=== PATIENT | male | born 1970 | race Caucasian/White ===

== ENCOUNTER 2020-09-14 13:39 | Outpatient (REF) | payer OTHER, SELFPAY ==
--- NOTE | 2020-09-14 | MR_ITS ---
EXAMINATION: MR CERVICAL SPINE WITHOUT AND WITH CONTRAST CLINICAL INFORMATION: Cervical myelopathy status post surgery with foraminotomies 2014. COMPARISON: Cervical spine MRI July 20, 2015. TECHNIQUE: MRI of the cervical spine was performed with routine sequences without and with intravenous contrast. A total of 7.5 ml of Gadavist was intravenously administered. FINDINGS: The cervical vertebral bodies maintain normal height. There is mild grade 1 retrolisthesis of C6 on C7. Moderate to severe disc height loss is seen at C5-C6 and C6-C7 with the remaining disc heights fairly well preserved. No bone marrow edema is seen on the motion degraded STIR sequence. The cord signal appears normal. No abnormal intrathecal enhancement is seen. The imaged portions of the intracranial contents appear normal. The extraspinal soft tissues appear normal. SPINAL LEVELS: C2-C3: No posterior disc abnormality or spinal canal stenosis. Bilateral uncovertebral hypertrophy and facet arthropathy results in mild to moderate left neural foraminal stenosis. C3-C4: Mild disc osteophyte complex without spinal canal stenosis. Left more than right uncovertebral hypertrophy and mild facet arthropathy results in moderate left and mild right neural foraminal stenosis. C4-C5: Disc osteophyte complex with uncovertebral hypertrophy results in moderate bilateral neural foraminal stenosis. No spinal canal stenosis. C5-C6: No posterior disc abnormality or spinal canal stenosis. Bilateral uncovertebral hypertrophy results in moderate left and mild right neural foraminal stenosis. C6-C7: Disc osteophyte complex without spinal canal stenosis. Bilateral uncovertebral hypertrophy results in severe bilateral neural foraminal stenosis. C7-T1: No posterior disc abnormality. No spinal canal or neural foraminal stenosis. IMPRESSION: Multilevel degenerative spondylotic changes. No significant narrowing of the spinal canal or cord signal abnormality. Varying degrees of neural foraminal stenosis are noted which appears moderate on the left at C3-C4, moderate bilaterally at C4-C5, moderate on the left at C5-C6, and severe bilaterally at C6-C7.
== END 2020-09-14 13:40 | disposition home or self-care (01) ==
LOC: HO.MRI 13:39
PROVIDERS: PCP Internal Medicine; Visit Provider Psychiatry & Neurology Neurology
DX: M50.00 Cervical disc disorder with myelopathy, unspecified cervical region (principal); M96.1 Postlaminectomy syndrome, not elsewhere classified
CPT/HCPCS: 72156

== ENCOUNTER → 2021-03-25 10:52 | Outpatient (BNVA) | payer OTHER, SELFPAY | PROVIDERS: PCP Internal Medicine; Visit Provider Surgery | DX: K64.5 Perianal venous thrombosis (principal); K64.8 Other hemorrhoids | CPT/HCPCS: 46600; 99202 ==

== ENCOUNTER 2021-05-17 09:45 | Outpatient (RCR) | payer OTHER, SELFPAY ==
[2021-04-21 12:25] VITALS: BMI 23.6
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
--- NOTE | 2021-04-21 13:25 | PC.ADMIT ---
Patient is a 50 year old male who was referred by his therapist d/t struggling with increased depression and severe anxiety. Feeling overwhelmed with chronic medical and pain issues r/t herniated discs and degenerative disc disease. Reports financial issues as well. Patient took a leave of absence from work to deal with his mental health issues. Patient is alert and oriented x4. Presents with depressed mood anxious affect. Denied SI. Patient gave verbal permission to email him a copy of his safety plan. Patient reports chronic pain issues d/t herniated discs and degenerative disc disease. Stated he has been to many doctors, surgeons, and attended physical therapy for a year d/t this. Recently had a nerve conduction test and MRI and stated he is being monitored for possible fusion surgery in the future. Patient also stated he has bladder issues and has an appointment with a urologist in April to /. He has not seen his PCP for over a year d/t fears of waylon covid as patient reports his PCP sees sick patients with the flu and other things and does not feel safe as a result. Medications reconciled with patient and patient's pharmacy. Patient reports he is taking 75 mg of Seroquel and his prescriber recently increased the medication to 100-200 mg at HS. Plans on picking up this prescription today and starting tonight. Dr. Mcnamara is aware.
--- NOTE | 2021-04-27 16:32 | HO.PHPPROGNO ---
Subjective Subjective Date of Service: 04/27/21 Reason For Visit: Depression, Anxiety Guardianship: No Medical Problems Affecting Mental Status: No Interim History: Patient reports he is doing well on current outpatient medications of xanax, remeron, seroquel, simvistatin. Reports the requip has helped control his restless leg symptoms. Reports he is finding PHP program helpful. Would like the Requip switched to once daily in evening, wants to keep same dose. Medication Compliance: Yes Side effects from medications: No Attending Groups: Yes Review of Systems Review of Systems Yes all other systems are reviewed and are negative Mental Status Exam Mental Status Exam Narrative: The patient is a 50 year old male. Reports okay mood and affect at this time. Reports improvement with requip. Wishes to change to once daily dosing. PLAN: Requip 0.5mg, take 1 to 3 hours prior to bedtime. Other medications: keep same. Follow-up in one week, sooner if needed. Patient Appearance: Well Grooomed Patient Orientation: Person, Place, Time and Situation Level of Consciousness: Awake and Appropriate Patient Behavior: Appropriate and Cooperative Mood Description: Calm and Appropriate Affect Description: Calm and Appropriate Patient Cognition Impaired: No Ability to Follow Directions: Excellent Speech Pattern: Clear Memory Description: Intact Hallucinations: None Delusions: Not Present Thought Process: Intact Thought Content: positive for Intact and positive for Goal Oriented Depressive Symptoms: Increased Anxiety and Difficulty Sleeping Judgement: Good Judgement and Insight: Judgment and insight appear grossly intact. Diagnostics Vital Signs (24Hr): Body Mass Index 23.6 Assessment & Plan Patient educated on: diagnosis and medication risk/benefits Informed Consent: understands Reason for contiued partial hosp. stay Substantial Risk for: inability to function and med/psych decompensation Certification I certify that partial hospital treatment is medically necessary due to the symptoms and problems resulting from the patient's mental illness and the failure to treat the patient at the partial hospital level of care would likely result in the patient requiring inpatient psychiatric care which could not be prevented at a less intensive level of care. Greater than 50% of the session was spent on counseling and/or coordination of care Discharge Plan Discharge Attending provider: Shree Mcnamara Primary Care Provider: Nikhil Salinas Medications: New ropinirole [Requip] 0.25 mg tablet 0.25 mg PO BID 7 Days Qty: 14 RF: 0 ropinirole [Requip] 0.25 mg tablet 0.5 mg PO BEDTIME 7 Days Qty: 14 RF: 0 No Action quetiapine [Seroquel] 100 mg Tablet 100 - 200 mg PO BEDTIME RF: 0 mirtazapine [Remeron] 45 mg Tablet 45 mg PO BEDTIME RF: 0 alprazolam 0.5 mg tablet 0.5 mg PO TID PRN (Reason: Anxiety) RF: 0 simvastatin 20 mg tablet 20 mg PO BEDTIME RF: 0 Referrals: Nikhil Salinas MD [Primary Care Provider] - 1 Week Telehealth Telehealth Location of provider rendering services: practice address Location of patient: address on file Patient Identification confirmed using: Name, : Yes Telehealth method: video Patient verbally consented to treatment: Yes Patient verbally consented to billing insurance company: Yes Patient informed of any privacy concerns related to visit: Yes Time spent with patient (mins): 25
--- NOTE | 2021-05-05 12:35 | P.PNPSP_ITS ---
Subjective Subjective Date of Service: 05/05/21 Reason For Visit: Depression, Anxiety Interim History: The patient reported improvement of RLS with Requip, no side effects with this new medication. Currently, he is doing well, he felt that [facility] has helped him. Medication Compliance: Yes Side effects from medications: No Attending Groups: Yes Review of Systems Acute medical concerns: No Medical Review of Systems: unchanged Mental Status Exam Mental Status Exam Patient Appearance: Well Grooomed Patient Orientation: Person, Place, Time and Situation Level of Consciousness: Awake and Appropriate Patient Behavior: Appropriate and Cooperative Mood Description: Calm and Appropriate Affect Description: Calm Patient Cognition Impaired: No Ability to Follow Directions: Good Speech Pattern: Clear Memory Description: Intact Hallucinations: None Delusions: Not Present Thought Process: Goal Oriented Thought Content: positive for Intact Judgement: Fair Diagnostics Vital Signs (24Hr): Body Mass Index 23.6 Assessment & Plan Assessment & Plan (1) Major depressive disorder: Status: Acute Code(s): F32.9 - Major depressive disorder, single episode, unspecified Assessment and Plan: The patient is an adult male with MDD, referred for exacerbation of dysphoria and RLS, that improved with Requip. Today is his last day at [facility] and he is at baseline, no evidence of safety concerns. Plan: Keep same treatment. F/U with his regular provider. Certification I certify that partial hospital treatment is medically necessary due to the symptoms and problems resulting from the patient's mental illness and the failure to treat the patient at the partial hospital level of care would likely result in the patient requiring inpatient psychiatric care which could not be prevented at a less intensive level of care. Greater than 50% of the session was spent on counseling and/or coordination of care Discharge Plan Discharge Attending provider: Shree Mcnamara Primary Care Provider: Nikhil Salinas Medications: New ropinirole [Requip] 0.25 mg tablet 0.25 mg PO BID 7 Days Qty: 14 RF: 0 ropinirole [Requip] 0.25 mg tablet 0.5 mg PO BEDTIME 7 Days Qty: 14 RF: 0 No Action quetiapine [Seroquel] 100 mg Tablet 100 - 200 mg PO BEDTIME RF: 0 mirtazapine [Remeron] 45 mg Tablet 45 mg PO BEDTIME RF: 0 alprazolam 0.5 mg tablet 0.5 mg PO TID PRN (Reason: Anxiety) RF: 0 simvastatin 20 mg tablet 20 mg PO BEDTIME RF: 0 Referrals: Nikhil Salinas MD [Primary Care Provider] - 1 Week Telehealth Telehealth Location of provider rendering services: practice address Location of patient: address on file Patient Identification confirmed using: Name, : Yes Telehealth method: video Patient verbally consented to treatment: Yes Patient verbally consented to billing insurance company: Yes Patient informed of any privacy concerns related to visit: No Time spent with patient (mins): 15
--- NOTE | 2021-05-12 14:04 | P.PNPSP_ITS ---
Subjective Subjective Date of Service: 05/12/21 Reason For Visit: Depression, Anxiety Interim History: The patient reported that his RLS has improved with Requip. Mood remains stable. NO new symptoms Medication Compliance: Yes Side effects from medications: No Mental Status Exam Mental Status Exam Patient Appearance: Well Grooomed Patient Orientation: Person, Place and Time Level of Consciousness: Awake and Appropriate Patient Behavior: Appropriate Mood Description: Calm Affect Description: Constricted Patient Cognition Impaired: No Ability to Follow Directions: Good Speech Pattern: Clear Memory Description: Intact Hallucinations: None Delusions: Not Present Thought Process: Goal Oriented Thought Content: positive for Intact Judgement: Fair Diagnostics Vital Signs (24Hr): Body Mass Index 23.6 Assessment & Plan Assessment & Plan (1) Major depressive disorder: Status: Acute Code(s): F32.9 - Major depressive disorder, single episode, unspecified Assessment and Plan: Adult male with MDD, referred to [facility] for exacerbation of depression and anxiety and RLS that improved with Requip. Plan: Keep same treatment Certification I certify that partial hospital treatment is medically necessary due to the symptoms and problems resulting from the patient's mental illness and the failure to treat the patient at the partial hospital level of care would likely result in the patient requiring inpatient psychiatric care which could not be prevented at a less intensive level of care. Greater than 50% of the session was spent on counseling and/or coordination of care Discharge Plan Discharge Attending provider: Shree Mcnamara Primary Care Provider: Nikhil Salinas Medications: Continued ropinirole [Requip] 0.25 mg tablet 0.5 mg PO BEDTIME 30 Days Qty: 60 RF: 0 No Action quetiapine [Seroquel] 100 mg Tablet 100 - 200 mg PO BEDTIME RF: 0 mirtazapine [Remeron] 45 mg Tablet 45 mg PO BEDTIME RF: 0 alprazolam 0.5 mg tablet 0.5 mg PO TID PRN (Reason: Anxiety) RF: 0 simvastatin 20 mg tablet 20 mg PO BEDTIME RF: 0 Referrals: Nikhil Salinas MD [Primary Care Provider] - 1 Week Telehealth Telehealth Location of provider rendering services: practice address Location of patient: address on file Patient Identification confirmed using: Name, : Yes Telehealth method: video Patient verbally consented to treatment: Yes Patient verbally consented to billing insurance company: Yes Patient informed of any privacy concerns related to visit: No Time spent with patient (mins): 15
--- NOTE | 2021-05-17 10:46 | PC.NURSE ---
Patient is discharging from the program today. Feeling some stress and anxiety regarding discharge. Learning how to structure his day. Denied any safety issues, no SI or thoughts to harm self. Reviewed patient medications with patient. He reports taking medications as prescribed. Medication education provided.
--- NOTE | 2021-05-17 15:03 | HO.PHPPROGNO ---
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 He does explain that he is experiencing some level of stress and anxiety, as it is due to uncertainty regarding what happens next. Overall though however he reports that he has had a decreased in depression and anxiety symptoms since his entrance and participation in the program. He describes his mood as overall stable at this time. No evidence SI or any other safety concerns. We reviewed his medications. He states that the Requip has helped tremendously with his restless legs, and plans to remain on this medication going forward. He does not have any other medication changes during program. He states that he is scheduled to see his outpatient prescriber is in hopes soon, and will discuss with him keeping the restless leg medication going forward. No side effects reported or noted. We discussed Seroquel, he states that he takes 100 mg at night. He reports that when he takes any higher doses, it causes him to feel ?groggy the next morning ?. He is currently happy with the Remeron and Xanax dosing. Patient reports he does not need any type of refills at this time. He did express hope for the future, and states that overall, the PHP has been helpful. Medication Compliance: Yes Side effects from medications: No Attending Groups: Yes Review of Systems Review of Systems Yes all other systems are reviewed and are negative Mental Status Exam Mental Status Exam Narrative: Well-groomed, well-nourished male, in no apparent distress. Patient Appearance: Well Grooomed and Appropriate Patient Orientation: Person, Place, Time and Situation Level of Consciousness: Awake and Appropriate Patient Behavior: Appropriate and Cooperative Mood Description: Appropriate and Anxious (slightly anxious mood reported.) Affect Description: Appropriate and Anxious (Slightly anxious affect noted.) Patient Cognition Impaired: No Ability to Follow Directions: Excellent Speech Pattern: Clear Memory Description: Intact Hallucinations: None Delusions: Not Present Thought Process: Intact Thought Content: positive for Intact Judgement: Good Judgement and Insight: Judgment and insight appear intact at this time. Diagnostics Vital Signs (24Hr): Body Mass Index 23.6 Assessment & Plan Assessment & Plan (1) Major depressive disorder: Status: Acute Code(s): F32.9 - Major depressive disorder, single episode, unspecified Assessment and Plan: Overall patient appears with improved although slightly anxious mood and affect. Will continue with current medication as ordered. Will follow up with outpatient prescriber going forward. No safety concerns at this time. Patient educated on: diagnosis, medication risk/benefits and therapeutic strategies Reason for contiued partial hosp. stay Substantial Risk for: stable for discharge Certification I certify that partial hospital treatment is medically necessary due to the symptoms and problems resulting from the patient's mental illness and the failure to treat the patient at the partial hospital level of care would likely result in the patient requiring inpatient psychiatric care which could not be prevented at a less intensive level of care. Greater than 50% of the session was spent on counseling and/or coordination of care Discharge Plan Discharge Attending provider: Shree Mcnamara Primary Care Provider: Nikhil Salinas Medications: Continued ropinirole [Requip] 0.25 mg tablet 0.5 mg PO BEDTIME 30 Days Qty: 60 RF: 0 No Action quetiapine [Seroquel] 100 mg Tablet 100 - 200 mg PO BEDTIME RF: 0 mirtazapine [Remeron] 45 mg Tablet 45 mg PO BEDTIME RF: 0 alprazolam 0.5 mg tablet 0.5 mg PO TID PRN (Reason: Anxiety) RF: 0 simvastatin 20 mg tablet 20 mg PO BEDTIME RF: 0 Referrals: Nikhil Salinas MD [Primary Care Provider] - 1 Week Stand Alone Forms: Patient Portal Discharge page Telehealth Telehealth Location of provider rendering services: practice address Location of patient: address on file Patient Identification confirmed using: Name, : Yes Telehealth method: video Patient verbally consented to treatment: Yes Patient verbally consented to billing insurance company: Yes Patient informed of any privacy concerns related to visit: Yes Time spent with patient (mins): 15
--- NOTE | 2021-05-17 17:54 | PC.NURSE ---
I called and left a message for pt's therapsit, MATTIE Woods at [facility]. [facility] informed [facility] pt's successful discharge from [facility] today.
== END 2021-05-18 07:32 | disposition home or self-care (01) ==
LOC: HO.PHPA 09:45
PROVIDERS: PCP Internal Medicine; Visit Provider Psychiatry & Neurology Psychiatry
DX: F32.9 Major depressive disorder, single episode, unspecified (principal); F41.9 Anxiety disorder, unspecified; G25.81 Restless legs syndrome; Z79.899 Other long term (current) drug therapy
CPT/HCPCS: 90791; 90853; 99212

== ENCOUNTER → 2021-05-21 13:29 | Outpatient (BNVA) | payer OTHER, SELFPAY | PROVIDERS: PCP Internal Medicine; Visit Provider Urology | DX: Z13.89 Encounter for screening for other disorder (principal) | CPT/HCPCS: 99202 ==

== ENCOUNTER → 2021-10-04 13:40 | Outpatient (BNVA) | payer OTHER, SELFPAY | PROVIDERS: PCP Internal Medicine; Visit Provider Orthopaedic Surgery | DX: M54.12 Radiculopathy, cervical region (principal) | CPT/HCPCS: 99202 ==

== ENCOUNTER → 2021-11-03 14:21 | Outpatient (BNVA) | payer MEDICAID, SELFPAY | PROVIDERS: PCP Internal Medicine; Visit Provider Nurse Practitioner Family ==

== ENCOUNTER → 2021-12-08 13:36 | Outpatient (BNVA) | payer MEDICAID, SELFPAY | PROVIDERS: Visit Provider Nurse Practitioner Family ==

== ENCOUNTER 2022-02-15 09:50 | Outpatient (REF) | payer MEDICAID, SELFPAY ==
[2022-02-15 10:16] LABS: MANUAL DIFF FLAG NO
[2022-02-15 10:42] LABS: Basophils Percent Auto 0.6 % (0-2); Eosinophils Absolute Auto 0.1 X10*3/uL (0.0-0.4); Eosinophils Percent Auto 1.1 % (0-4); Hematocrit 47.9 % (42.0-52.0); Hemoglobin 15.5 g/dl (14.0-18.0); Imm Gran Abs Auto 0.01 X10*3/uL (0.00-0.03); Imm Gran Pct Auto 0.2 % (0.0-0.4); Lymphocytes Absolute Auto 1.9 X10*3/uL (1.2-4.9); Lymphocytes Percent Auto 36.7 % (20-40); Mean Corpuscular HGB Conc 32.4 g/dl (31.0-36.0); Mean Corpuscular Volume 92.6 fL (80.0-98.0); Mean Platelet Volume 10.9 fL (9.4-12.4); Monocytes Absolute Auto 0.4 X10*3/uL (0.1-1.2); Monocytes Percent Auto 6.8 % (2-11); Neutrophils Absolute Auto 2.9 x10*3/uL (2.0-8.3); Neutrophils Percent Auto 54.6 % (45-73); Platelet Count 341 X10*3/uL (160-400); Red Blood Count 5.17 X10*6/uL (4.60-5.80); Red Cell Distribution Width 13.4 % (11.0-16.0); White Blood Count 5.3 X10*3/uL (4.8-10.8)
[2022-02-15 11:14] LABS: Alanine Aminotransferase 23 U/L (0-40); Albumin Level 4.2 g/dL (3.5-5.0); Alkaline Phosphatase 74 U/L (39-117); Anion Gap 13 (12-20); Aspartate Amino Transferase 18 U/L (5-37); Bilirubin Total 0.9 mg/dL (0.0-1.0); Blood Urea Nitrogen 18 mg/dL (9-16); Calcium 9.6 mg/dL (8.4-10.2); Carbon Dioxide 29 mmol/L (22-29); Chloride 105 mmol/L (96-108); Cholesterol 192 mg/dL; Estimated Glomerular Filt Rate > 60; Glucose Fasting 107 mg/dL (60-99); HDL Cholesterol 48 mg/dL; LDL Cholesterol Calculated 126 mg/dl; Potassium 4.7 mmol/L (3.3-5.1); Sodium 142 mmol/L (135-145); Total Protein 6.9 g/dL (6.5-8.0); Triglycerides 94 mg/dL
[2022-02-15 11:35] LABS: Prostate Specific Antigen 0.48 ng/mL (<0.05-4.0)
== END 2022-02-15 09:51 | disposition home or self-care (01) ==
LOC: HO.LAB 09:50
PROVIDERS: PCP Internal Medicine; Visit Provider Internal Medicine
DX: E78.00 Pure hypercholesterolemia, unspecified (principal); K21.9 Gastro-esophageal reflux disease without esophagitis; Z12.5 Encounter for screening for malignant neoplasm of prostate
CPT/HCPCS: 36415; 80053; 80061; 84153; 85025

== ENCOUNTER → 2022-09-01 12:57 | Outpatient (BNVA) | payer MEDICAID, SELFPAY | PROVIDERS: PCP Internal Medicine; Visit Provider Surgery | DX: Z80.0 Family history of malignant neoplasm of digestive organs (principal) | CPT/HCPCS: 99212 ==

== ENCOUNTER → 2022-12-26 13:17 | Outpatient (BNVA) | payer MEDICAID, SELFPAY | PROVIDERS: PCP Internal Medicine; Visit Provider Anesthesiology | DX: Z13.89 Encounter for screening for other disorder (principal) ==

== ENCOUNTER 2023-08-03 09:17 | Outpatient (REF) | payer MEDICAID, SELFPAY ==
[2023-08-03 09:26] LABS: MANUAL DIFF FLAG NO
[2023-08-03 09:48] LABS: Basophils Percent Auto 0.6 % (0-2); Eosinophils Absolute Auto 0.1 X10*3/uL (0.0-0.4); Eosinophils Percent Auto 1.6 % (0-4); Hematocrit 47.8 % (42.0-52.0); Hemoglobin 15.8 g/dl (14.0-18.0); Imm Gran Abs Auto 0.03 X10*3/uL (0.00-0.03); Imm Gran Pct Auto 0.4 % (0.0-0.4); Mean Corpuscular HGB Conc 33.1 g/dl (31.0-36.0); Mean Corpuscular Hemoglobin 30.1 pg (27.0-33.0); Mean Platelet Volume 10.7 fL (9.4-12.4); Monocytes Absolute Auto 0.6 X10*3/uL (0.1-1.2); Monocytes Percent Auto 8.4 % (2-11); Neutrophils Absolute Auto 4.2 x10*3/uL (2.0-8.3); Platelet Count 301 X10*3/uL (160-400); Red Blood Count 5.25 X10*6/uL (4.60-5.80); Red Cell Distribution Width 13.9 % (11.0-16.0)
[2023-08-03 10:33] LABS: Alanine Aminotransferase 29 U/L (0-40); Albumin Level 4.1 g/dL (3.5-5.0); Alkaline Phosphatase 70 U/L (39-117); Anion Gap 10 (12-20); Aspartate Amino Transferase 21 U/L (5-37); Bilirubin Total 0.7 mg/dL (0.0-1.0); Blood Urea Nitrogen 15 mg/dL (9-16); Calcium 9.5 mg/dL (8.4-10.2); Carbon Dioxide 31 mmol/L (22-29); Chloride 105 mmol/L (96-108); Cholesterol 188 mg/dL (<200); Estimated Glomerular Filt Rate > 60; Glucose Fasting 104 mg/dL (60-99); HDL Cholesterol 45 mg/dL (>40); LDL Cholesterol Calculated 125 mg/dL (<100); Potassium 4.4 mmol/L (3.3-5.1); Sodium 142 mmol/L (135-145); Total Protein 6.8 g/dL (6.5-8.0); Triglycerides 94 mg/dL (<150)
[2023-08-03 10:46] LABS: Prostate Specific Antigen 0.51 ng/mL (<0.05-4.0)
== END 2023-08-03 09:18 | disposition home or self-care (01) ==
LOC: HO.LAB 09:17
PROVIDERS: PCP Internal Medicine; Visit Provider Internal Medicine
DX: Z12.5 Encounter for screening for malignant neoplasm of prostate (principal); E78.00 Pure hypercholesterolemia, unspecified; G25.81 Restless legs syndrome
CPT/HCPCS: 36415; 80053; 80061; 84153; 85025

== ENCOUNTER 2024-04-03 09:33 | Outpatient (AMB) | payer OTHER, SELFPAY ==
--- NOTE | 2024-04-03 09:34 | MHC.OFFVIS ---
Vital Signs 04/03/24 09:39 Height 5 ft 8 in Weight 174 lb BMI 26.5 Intake Visit Reasons: 5 yr Colonoscopy Intake Note: This patient presents for a five year recall colonoscopy screening. Patient c/o; reports no rectal bleeding, reports no rectal pain, reports no constipation or changes in bowel habits, reports no blood in stool. Last colonoscopy-12/21/2018 Presentation Designer Required: No Accompanied by: Self / Same As Patient Allergies No Known Allergies Allergy (Verified 04/03/24 09:41) Medication List - Last Reconciled 04/03/24 by Nikhil Domingo MD alprazolam 0.5 mg PO TID PRN buspirone 5 mg PO TID quetiapine (Seroquel) 200 mg PO BEDTIME ropinirole 2 mg PO BEDTIME PRN simvastatin 20 mg PO BEDTIME tizanidine 4 mg PO BID PRN 30 days HPI HPI 5 yr Colonoscopy: Details: 53-year-old male referred for follow-up screening colonoscopy. He has a strong family history of colon cancer. His brother was diagnosed to have colon cancer at age of 42. His last colonoscopy was in 2019. This was unremarkable except for external hemorrhoids. He denies any significant GI complaints. [facility] Medical History Family history of colon cancer Herniated disc Degenerative disc disease Restless leg syndrome History of anxiety Elevated cholesterol Internal and external thrombosed hemorrhoids Surgical History H/O colonoscopy History of appendectomy Family History Father HTN (hypertension) Mother No problems noted. Brother Colon cancer Social History Household Members: None Patient Tobacco Use Status: Tobacco use Unknown Current occupational status: unemployed Review of Systems Const Denies chills and Denies fever(s) Card Denies chest pain, Denies dyspnea and Denies dyspnea on exertion Resp Denies cough, Denies dyspnea and Denies dyspnea on exertion GI Denies hematochezia and Denies change in bowel habits Denies hematuria and Denies difficulty urinating Musc Denies back pain and Denies limited range of motion Neuro Denies focal weakness and Denies convulsions Psych Denies depression and Denies mood swings Physical Exam Const General: comfortable and no acute distress Orientation/consciousness: patient oriented x3 Neck Neck: Yes no lymphadenopathy Resp Auscultation: clear to auscultation bilaterally Cardio Rhythm: regular rhythm GI Palpation (GI): Soft to palpation, nontender and no guarding Neuro General: patient oriented x3 Assessment & Plan Assessment & Plan (1) Family history of colon cancer: Code(s): Z80.0 - Family history of malignant neoplasm of digestive organs Category: Medical Plan: He undergoes a colonoscopy every 5 years in view of his family history. He is due this year. I reviewed with him the technique of colonoscopy. I discussed the risks including but not limited to bleeding and perforation, as well as the benefits and alternatives. Understands and wants to proceed. Medications: New sodium,potassium,mag sulfates 17.5-3.13-1.6 gram (Suprep Bowel Prep Kit) DILUTE; drink full amount early evening before AND next morning at least 2 hr before procedure; follow w 960 mL water PO 354 mL 0RF Coding Level of Care Code New Pt Level 3 (42661) Diagnoses Family history of colon cancer Z80.0
[2024-04-03 09:39] VITALS: BMI 26.5
== END 2024-04-03 09:52 | disposition home or self-care (01) ==
PROVIDERS: PCP Internal Medicine; Visit Provider Surgery
DX: Z80.0 Family history of malignant neoplasm of digestive organs (principal)
CPT/HCPCS: 99024

== ENCOUNTER → 2024-04-03 09:33 | Outpatient (BNVA) | payer OTHER, SELFPAY | PROVIDERS: PCP Internal Medicine; Visit Provider Surgery | DX: Z01.818 Encounter for other preprocedural examination (principal); Z80.0 Family history of malignant neoplasm of digestive organs | CPT/HCPCS: 99212 ==

== ENCOUNTER 2024-04-12 07:49 | Day surgery (SDC) | payer OTHER, SELFPAY ==
[2024-04-10 12:16] VITALS: BMI 26.5
--- NOTE | 2024-04-10 13:49 | HO.ANESPROP2 ---
Documented by User: Michaelle Robertson NP 04/10/24 13:49 HPI - Anesthesia Eval Consult details Narrative: 53yo M for Colonoscopy possible Polypectomy PMFSH Active Problems Active Problems: All Active Problems Family history of colon cancer (Acute) Spondylosis of lumbar spine (Acute) Muscle spasm (Acute) Myofascial pain (Acute) Cervical radicular pain (Acute) Shy bladder syndrome (Acute) Major depressive disorder (Acute) Internal and external thrombosed hemorrhoids (Acute) Past Medical History Medical History Family history of colon cancer Herniated disc Degenerative disc disease Restless leg syndrome History of anxiety Elevated cholesterol Internal and external thrombosed hemorrhoids Family History Family History Father HTN (hypertension) Mother No problems noted. Brother Colon cancer Surgical History Surgical History H/O colonoscopy History of appendectomy Social History Social History Household Members: None Patient Tobacco Use Status: Never used Tobacco Use of substances other than those prescribed or required for medical reasons: Yes Substance Use Frequency: Weekly Are you DNR?: No Advance Directives: No Advance Directives Information Provided: Yes Current occupational status: unemployed Meds Allergies Allergy/AdvReac Type Severity Reaction Status Date / Time No Known Allergies Allergy Verified 04/03/24 09:41 Home Medications ?Medication ?Instructions ?Recorded ?Confirmed ?Last Taken ?Type simvastatin 20 mg tablet 20 mg PO BEDTIME 08/26/20 04/12/24 04/11/24 History alprazolam 0.5 mg tablet 0.5 mg PO TID PRN Anxiety 03/25/21 04/12/24 04/11/24 History quetiapine 100 mg tablet (Seroquel) 200 mg PO BEDTIME 11/03/21 04/12/24 04/11/24 History buspirone 5 mg tablet 5 mg PO TID 02/16/22 04/12/24 04/11/24 History ropinirole 2 mg tablet 2 mg PO BEDTIME PRN Restless Leg(S) 09/01/22 04/12/24 04/11/24 History Exam Height,Weight and Vital Signs: Height 5 ft 8 in Weight 78.925 kg Assessment and Plan Assessment Anesthesia Assessment: Chart Reviewed Documented by User: Roshni Baker MD 04/12/24 09:51 PMFSH Past Medical History Medical History Family history of colon cancer Herniated disc Degenerative disc disease Restless leg syndrome History of anxiety Elevated cholesterol Internal and external thrombosed hemorrhoids Family History Family History Father HTN (hypertension) Mother No problems noted. Brother Colon cancer Family history of problems with anesthesia: No Surgical History Surgical History H/O colonoscopy History of appendectomy History of Problems with Anesthesia: No Social History Social History Household Members: None Patient Tobacco Use Status: Never used Tobacco Use of substances other than those prescribed or required for medical reasons: Yes Substance Use Frequency: Weekly Are you DNR?: No Advance Directives: No Advance Directives Information Provided: Yes Current occupational status: unemployed Meds Allergies Allergy/AdvReac Type Severity Reaction Status Date / Time No Known Allergies Allergy Verified 04/03/24 09:41 Home Medications ?Medication ?Instructions ?Recorded ?Confirmed ?Last Taken ?Type simvastatin 20 mg tablet 20 mg PO BEDTIME 08/26/20 04/12/24 04/11/24 History alprazolam 0.5 mg tablet 0.5 mg PO TID PRN Anxiety 03/25/21 04/12/24 04/11/24 History quetiapine 100 mg tablet (Seroquel) 200 mg PO BEDTIME 11/03/21 04/12/2424 History buspirone 5 mg tablet 5 mg PO TID 02/16/22 04/12/24 04/11/24 History ropinirole 2 mg tablet 2 mg PO BEDTIME PRN Restless Leg(S) 09/01/22 04/12/24 04/11/24 History Exam Airway Mallampati Class: II TM Dist: >3cm Neck ROM: Full Heart: rrrcta Assessment and Plan Assessment Anesthesia Assessment: Anesthesia Plan Discussed Final Anesthetic Review Family History of Problems with Anesthesia: No History of Problems with Anesthesia: No NPO: Yes ASA Class: III Final Preanesthetic Review: No Changes in Pt Med Stat, Meds/Allgs Chart Reviewed, Consent Obtained/Reviewed and Anes Risks/Benef Reviewed Patient Risk: Intermediate Procedure Risk: Low Anesthetic Plan Anesthetic Plan: MAC: Disposition: Standard PACU
[2024-04-12 08:35] VITALS: BMI 25.1
[2024-04-12 08:42] VITALS: BP 152/89; PULSE 76; RESP 16; TEMP 36.8; O2SAT 98
[2024-04-12] MEDS: Lactated Ringers 1,000 ML 100 ML IVCONT (08:42)
--- NOTE | 2024-04-12 09:41 | MHC.SHP ---
Pre-Procedural Eval Section A - 24 Hr Update-Section A only Date of Service: 04/12/24 The patient is an INPATIENT: No Changes since office visit: No Cold of Flu in the past 2 weeks, No New Medical Problems, No Changes in Medication and No Patient answered all questions The patient has been examined within 24 hours of the surgical procedure. The History & Physical has been completed within 30 days and I have reviewed it.: Yes Section B - Complete if H&P > 30 days Chief Complaint: Family history of malignant neoplasm of digestive Allergies: Allergies Allergy/AdvReac Type Severity Reaction Status Date / Time No Known Allergies Allergy Verified 04/03/24 09:41 Plan I have reviewed the history and physical and performed a pertinent physical examination on my patient. No changes have occurred unless specified. Time Spent With Patient Time: Total time managing care of this patient today ____ minutes.
--- NOTE | 2024-04-12 10:16 | W.PM.OPN ---
Operative Note Operative Note Date of Service: 04/12/24 Narrative: Preop diagnosis: Family history of colon cancer Postop diagnosis: Normal colonoscopy findings Procedure: Colonoscopy Surgeon: Nikhil Domingo MD The patient is a 53-year-old male family history of colon cancer here for screening colonoscopy. He understands the technique of the procedure as well as the risks, benefits, and alternatives The patient was brought to the operating room and placed in left lateral decubitus position under monitored anesthesia care. A surgical time-out was done. A full digital rectal exam was done and this did not reveal any significant anal lesions. The tip of the Olympus colonoscope was gently introduced through the anal orifice advanced with insufflation all the way to the cecum. The cecum was intubated. The cecum was identified by visualization of the ileocecal valve as well as the appendiceal orifice. The cecal mucosa was unremarkable. The scope was gradually withdrawn with careful examination of the entire colonic mucosa being done with scope withdrawal. The patient had adequate bowel prep so it was unlikely that any lesion may have been missed. The rectum was reached and there were no lesions seen. The anal canal was unremarkable except for some prominent hemorrhoidal columns. The scope was then withdrawn completely with desufflation. The patient tolerated the procedure well. There were no immediate complications. In view of his family history, is next colonoscopy may be in the next 5 years.
[2024-04-12 10:22] VITALS: BP 103/66; PULSE 72; RESP 16; TEMP 36.6; O2SAT 98
[2024-04-12 10:38] VITALS: BP 115/79; PULSE 70; RESP 18; O2SAT 98
[2024-04-12 10:54] VITALS: BP 137/98; PULSE 68; RESP 18; TEMP 36.6; O2SAT 99
== END 2024-04-12 11:12 | disposition home or self-care (01) ==
PROVIDERS: PCP Internal Medicine; Visit Provider Surgery
PROC: 0DBE8ZZ Excision of Large Intestine, Via Natural or Artificial Opening Endoscopic (ICD-10-PCS; CPT G0105; principal; 2024-04-12 10:00)
DX: Z12.11 Encounter for screening for malignant neoplasm of colon (principal); Z80.0 Family history of malignant neoplasm of digestive organs; K64.8 Other hemorrhoids; K64.4 Residual hemorrhoidal skin tags; E78.00 Pure hypercholesterolemia, unspecified; G25.81 Restless legs syndrome; Z79.899 Other long term (current) drug therapy; Z90.49 Acquired absence of other specified parts of digestive tract; Z56.0 Unemployment, unspecified
CPT/HCPCS: G0105; J2250; J2704

== ENCOUNTER → 2024-04-12 07:49 | Outpatient (BNV) | payer OTHER, SELFPAY | PROVIDERS: PCP Internal Medicine; Visit Provider Surgery | DX: Z12.11 Encounter for screening for malignant neoplasm of colon (principal); Z80.0 Family history of malignant neoplasm of digestive organs | CPT/HCPCS: G0105 ==

== ENCOUNTER 2024-04-25 10:00 | Outpatient (AMB) | payer OTHER, SELFPAY ==
--- NOTE | 2024-04-25 10:01 | A.OFFVIS_ITS ---
Intake Visit Reasons: S/P colonoscopy Intake Note: This patient presents for a follow-up assessment status post colonoscopy. Pt c/o; reports no complaints status post colonoscopy. 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 He tolerated procedure well. He currently denies significant complaints. [facility] Medical History Family history of colon cancer Herniated disc Degenerative disc disease Restless leg syndrome History of anxiety Elevated cholesterol Internal and external thrombosed hemorrhoids Surgical History H/O colonoscopy History of appendectomy Family History Father HTN (hypertension) Mother No problems noted. Brother Colon cancer Social History Household Members: None Patient Tobacco Use Status: Never used Tobacco Current occupational status: unemployed Review of Systems Const Denies chills and Denies fever(s) Card Denies chest pain, Denies dyspnea and Denies dyspnea on exertion Resp Denies cough, Denies dyspnea and Denies dyspnea on exertion GI Denies hematochezia and Denies change in bowel habits Denies hematuria and Denies difficulty urinating Musc Denies back pain and Denies limited range of motion Neuro Denies focal weakness and Denies convulsions Psych Denies depression and Denies mood swings Physical Exam Const General: comfortable and no acute distress Resp Effort & Inspection: normal respiratory effort GI Palpation (GI): Soft to palpation Assessment & Plan Assessment & Plan (1) Family history of colon cancer: Code(s): Z80.0 - Family history of malignant neoplasm of digestive organs Category: Medical Plan: Status post colonoscopy. I did not any polyps or any lesions. He had good bowel prep. I reminded him that he should continue with a colonoscopy every 5 years in view of his family history. He understands the above. Coding Level of Care Code Global (54826) Diagnoses Family history of colon cancer Z80.0
== END 2024-04-25 10:13 | disposition home or self-care (01) ==
PROVIDERS: PCP Internal Medicine; Visit Provider Surgery
DX: Z80.0 Family history of malignant neoplasm of digestive organs (principal)
CPT/HCPCS: 99024

== ENCOUNTER → 2024-04-25 10:00 | Outpatient (BNVA) | payer OTHER, SELFPAY | PROVIDERS: PCP Internal Medicine; Visit Provider Surgery | DX: Z98.890 Other specified postprocedural states (principal); Z80.0 Family history of malignant neoplasm of digestive organs | CPT/HCPCS: 99212 ==

== ENCOUNTER 2024-05-15 09:47 | Outpatient (AMB) | payer OTHER, SELFPAY ==
--- NOTE | 2024-05-15 09:57 | A.OFFPC_ITS ---
Vital Signs 05/15/24 10:03 05/15/24 10:06 Height 5 ft 9.88 in Weight 181 lb 8 oz BMI 26.1 BP 140/78 H 136/68 Blood Pressure Location Lt brachial Lt brachial Position Sitting Sitting Respiration 12 Pulse 102 H Pulse Source Pulse Oximeter Temp 98.2 F Temp Source Oral Pulse Oximetry (%) 97 Oxygen Delivery Method Room Air Intake Visit Reasons: est care colestrol, restless leg Intake Note: Establish care. Looking for medication refills, plans on being a pt of Dr Martin casas. Allergies No Known Allergies Allergy (Verified 05/15/24 10:12) Medication List - Last Reconciled 05/15/24 by Ysabel Shelley, COLORIST PHOTOGRAPHY- alprazolam 0.5 mg PO TID PRN buspirone 5 mg PO TID quetiapine ER 200 mg PO BEDTIME ropinirole 2 mg PO BEDTIME PRN simvastatin 20 mg PO BEDTIME Tobacco use date assessed: 05/15/24 Dental Screening Dental Screen Date: 05/15/24 Did you have a dental visit in the last 12 months?: Yes Did you have a dental problem in the last 6 months where you did not have access to dental care?: No Was dental information given to patient?: Patient has dentist HPI HPI Comments History of Present Illness Details 53-year-old male with MDD, generalized a nxiety disorder, restless leg syndrome hyperlipidemia, degenerative disc disease, hemorrhoids, IFG Hospitalization: Inpatient psych age 39 for depression, inpatient psych 2020 for depression Family hx: + colon ca Status post appendectomy Health Maintenance: ? Colon 04/12/2024, normal, repeat q5 yrs (Dr Domingo) ? PSA done today and within normal limits ? Tdap Specialists: GI Was seeing Psych, Uro, Ortho and Pain Mgmt in the past Here today to est care coming from Dr Salinas - old records reviewed. HLD - tolerating compliant a statin. Willing to update direct LDL today. RLS - well controlled on ropinirole. We will need a refill. MDD and generalized anxiety disorder is well controlled on current medications. This is prescribed by an outside provider. He does not need any refills. He wishes to establish care with Dr. Sanchez as he prefers a male provider. Plan Refill of simvastatin 20 mg sent. Labs today for direct LDL. CMP performed and reviewed within normal limits. Continue ropinirole 2 mg at bedtime for RLS. Continue to see outside prescriber and support services were generalized anxiety and major depression. Continue same medications as prescribed by them. PSA checked for a wellness screen as you are getting blood work any ways today. This was normal. Follow up with Dr. Sanchez in a in a few weeks to establish care. He will need to review your LDL with him as it is not available to me today. The goal will be less than 100. [facility] Medical History Family history of colon cancer Herniated disc Degenerative disc disease Restless leg syndrome History of anxiety Elevated cholesterol Internal and external thrombosed hemorrhoids Surgical History H/O colonoscopy History of appendectomy Family History Father HTN (hypertension) Mother No problems noted. Brother Colon cancer Other FH: mental illness Social History Household Members: None Housing: House Patient Tobacco Use Status: Never used Tobacco Second Hand Smoke Exposure: No service: No Current occupational status: unemployed Cognitive needs: No Hearing needs: No Vision needs: No Questionnaire PHQ-9 Over the last 2 weeks, how often have you been bothered by any of the following problems? 1. Little interest or pleasure in doing things: nearly every day 2. Feeling down, depressed, or hopeless: more than half the days 3. Trouble falling or staying asleep, or sleeping too much: nearly every day 4. Feeling tired or having little energy: more than half the days 5. Poor appetite or overeating: more than half the days 6. Feeling bad about yourself - or that you are a failure or have let yourself or your family down: more than half the days 7. Trouble concentrating on things, such as reading the newspaper or watching television: nearly every day 8. Moving or speaking so slowly that other people could have noticed. Or the opposite - being so fidgety or restless that you have been moving around a lot more than usual: nearly every day 9. Thoughts that you would be better off or of hurting yourself in some way: not at all Total score: 20 Depression Screening Interpretation: Positive Depression Screening Follow-up: Existing condition and In treatment Depression Screening Done: Yes 34325 - PHQ-9 Billing: Yes Source: Developed by Drs. Otis Pittman, Jerica Chavez, Asad See and colleagues, with an educational elisha from [employer]. Thrive Questionnaire Date Thrive assessed: 05/15/24 I am a: Patient What is your living situation today?: I have a steady place to live Within the past 12 months, did the food you bought not last and you didn't have the money to get more?: Sometimes True Within the past 12 months, did you worry whether your food would run out before you got money to buy more?: Never true Do you have trouble paying for medicines?: No Do you have trouble getting transportation to medical appointments?: No Do you have trouble paying your heating and electricity bill?: No Do you have trouble taking care of your child, family member or friend?: No Do you have trouble with day-to-day activities such as bathing, preparing meals, shopping, managing finances, etc.?: No Are you currently unemployed and looking for a job?: No Are you interested in more education?: No Please select the resources that you would like help with: None Currently or been in a relationship where the following occur: no concerns reported THRIVE Score: 1 AUDIT C Alcohol Use Questionnaire (AUDIT-C) 1. How often do you have a drink containing alcohol?: Never 3. How often do you have six or more drinks on one occasion?: Never Total Score: 0 Score Reviewed/Action Taken: Yes ASH-7 AMB Questionnaire ASH-7 Date ASH - 7 assessed: 05/15/24 Feeling nervous, anxious, or on edge: 3 = Nearly every day Not being able to stop or control worryin = Nearly every day Worrying too much about different things: 3 = Nearly every day Trouble relaxin = Nearly every day Being so restless that it is hard to sit still: 3 = Nearly every day Becoming easily annoyed or irritable: 2 = More than half the days Feeling afraid as if something awful might happen: 3 = Nearly every day Total ASH-7 score (0-4 normal; 5-9 mild; 10-14 moderate; 15-21 severe): 20 Source: Developed by Drs. Otis Pittman, Jerica Chavez, Asad See and colleagues, with an educational elisha from [employer]. ASH-7 Assessment Billing ASH-7 Assessment Tool: ASH-7 Assessment 88557 Review of Systems Const All systems reviewed & are unremarkable except as noted in HPI and below Physical exam (Primary Care) Vital Signs: Last Vital Signs Temp 98.2 F 05/15/24 10:03 Pulse 102 H 05/15/24 10:03 Resp 12 05/15/24 10:03 BP 136/68 05/15/24 10:06 Pulse Ox 97 05/15/24 10:03 Oxygen Delivery Method Room Air 05/15/24 10:03 BMI result Body Mass Index 26.1 Tobacco/Smoking Status: Tobacco use Status Tobacco use date assessed 05/15/24 05/15/24 10:05 Patient Tobacco Use Status Never used Tobacco 05/15/24 10:05 PHQ-9: PHQ-9 Score PHQ-9: Total score 20 05/15/24 10:16 Depression Screening Interpretation: Positive Depression Screening Follow-up: Existing condition and In treatment Thrive Assessment: Date of Thrive Assessment Date Thrive assessed 05/15/24 05/15/24 10:09 Currently or been in a relationship where the following occur: no concerns reported Const Other: Awake alert oriented Scleras nonicteric bilat Regular rate and rhythm Lung sounds clear to auscultation bilat Mood and affect appropriate Assessment and Plan Assessment & Plan (1) Restless leg syndrome: Code(s): G25.81 - Restless legs syndrome (2) Hyperlipidemia: Code(s): E78.5 - Hyperlipidemia, unspecified Qualifiers: Hyperlipidemia type: mixed hyperlipidemia Qualified Code(s): E78.2 - Mixed hyperlipidemia (3) ASH (generalized anxiety disorder): Code(s): F41.1 - Generalized anxiety disorder (4) MDD (major depressive disorder), recurrent episode: Code(s): F33.9 - Major depressive disorder, recurrent, unspecified Qualifiers: Major depression episode severity: severe Psychotic features: without psychotic features Qualified Code(s): F33.2 - Major depressive disorder, recurrent severe without psychotic features (5) Screening for prostate cancer: Code(s): Z12.5 - Encounter for screening for malignant neoplasm of prostate Plan This note is constructed using voice recognition software. While every effort has been made to ensure accuracy in drums teacher, still errors may have been included Sometimes, these errors may affect the content or meaning of the given sentence . Total time spent caring for the patient today was 40 minutes. This includes time spent before the visit reviewing the chart, time spent during the visit, and time spent after the visit on documentation Orders: Orders PSA, Ultra Sensitive Today E78.5 - Hyperlipidemia, unspecified, G25.81 - Restless legs syndrome, Z12.5 - Encounter for screening for malignant neoplasm of prostate LDL Cholesterol Direct Today E78.5 - Hyperlipidemia, unspecified, G25.81 - Restless legs syndrome, Z12.5 - Encounter for screening for malignant neoplasm of prostate Comprehensive Met. Panel Today E78.5 - Hyperlipidemia, unspecified, G25.81 - Restless legs syndrome, Z12.5 - Encounter for screening for malignant neoplasm of prostate Medications: New ropinirole 2 mg PO BEDTIME PRN 30 tabs 1RF Restless Leg(S) simvastatin 20 mg PO BEDTIME 30 tabs 1RF Patient Instructions: Plan Refill of simvastatin 20 mg sent. Labs today for direct LDL. CMP performed and reviewed within normal limits. Continue ropinirole 2 mg at bedtime for RLS. Continue to see outside prescriber and support services were generalized anxiety and major depression. Continue same medications as prescribed by them. PSA checked for a wellness screen as you are getting blood work any ways today. This was normal. Follow up with Dr. Sanchez in a in a few weeks to establish care. He will need to review your LDL with him as it is not available to me today. The goal will be less than 100. Walk-In Care (Urgent Care): We Make it Easy Walk-in for urgent medical issues such as: ? Seasonal Allergies ? Insect Bites ? Cough ? Diarrhea ? Acute Asthma Attacks ? Back, Knee or Joint Pain ? Ear Infection ? Fever without a Rash ? Headaches ? Nausea ? [place], Rash or Skin Irritation ? Sore Throat ? Sports Physicals ? Vomiting Most insurances are accepted. Patients do not need to be part of the [facility] to seek care at the walk-in clinic. Locations [facility] [place] [address] ? [phone] [facility] Walk-In Care in [place] provides services to ages 18 and over. Open Monday-Monday: 8 a.m. to 5 p.m. and Monday: 9 a.m. to 3 p.m.* *Hours may vary due to staffing availability. To confirm Walk-In Care hours in [place], please call [phone]. [address] [place] [address] ? [phone] [facility] Walk-In Care in [place] provides services to ages 12 and over. Open Monday-Monday: 8 a.m. to 5 p.m. Hours may vary due to staffing availability. To confirm Walk-In Care hours in [place], please call [phone]. LABORATORY SERVICES: [facility] Lab ? Primary Location [address] [place] [address] Monday through Monday 6:00 AM ? 5:00 PM Monday 7:00 AM ? 11:00 AM* [phone] The [facility] Lab is centrally located near the front entrance of the [facility] for easy outpatient access. Convenient parking is provided for outpatients. *Hours may vary due to staffing availability. To confirm Laboratory hours for any location, please call [phone]. Offsite Location For your convenience, we offer offsite laboratory draw stations at the following locations: [address] [place] [address] ? [address], [address] Monday through Monday 7:30 AM ? 1:00 PM* [phone] *Hours may vary due to staffing availability. To confirm Laboratory hours for any location, please call [phone]. [place] ? [address] Monday through Monday 6:00 AM ? 3:30 PM* Monday 6:30 AM ? 3 PM* [phone] *Hours may vary due to staffing availability. To confirm Laboratory hours for any location, please call [phone] [place] [address] Monday through Monday 7:30 AM ? 4:00 PM* [phone] *Hours may vary due to staffing availability. To confirm Laboratory hours for any location, please call [phone]. [facility] Monday through 9:00 AM ? 4:00 PM* *Hours may vary due to staffing availability. To confirm Laboratory hours for any location, please call [phone]. Appointments are not necessary. Walk-ins are welcome. Like all the departments throughout the [facility], our Lab undergoes frequent reviews to ensure the quality and accuracy of test results, and our staff takes special pride in its status as a nationally accredited facility. Patient Portal: ONE PATIENT. ONE RECORD. BETTER CARE. [facility] has a fully integrated, cutting- edge mobile electronic health information system that has revolutionized the way we care for our patients and manage our organization. This system improves communication and coordination enabling us to provide safe, higher-quality care, and an overall positive experience for staff and patients. Our first priority, as always, is to deliver the highest quality care possible. The system is running in the background supporting that priority. This portal is for all [facility] services and practices. If you are experiencing any technical difficulties with enrolling or logging into the Patient Portal please complete the [facility] Patient Portal Technical Support Form. [facility] now offers a new secure on-line interactive tool for patients to review their health information ? ?Patient Portal. This interactive web portal will enable patients and their families to take an active role in their care by providing easy, secure access to their health information via the internet. The Patient Portal provides patients with instant access to their health information, including laboratory results, medications, allergies, demographic information, visit history, and more. In addition to managing their own care, parents and health care proxies with authorized consent will appreciate the ability to access the records of those individuals for whom they provide care. Please note: if you wish to gain access (Proxy) to another patient?s portal, you will be required to come to the Medical Records Department in person at [facility]. Both the patient giving proxy access and the proxy will need to provide photo identification and complete the appropriate authorization. The Patient Portal also allows track their appointments online. The [facility] Patient Portal also saves patients time by allowing them to submit updates to their demographic and contact information prior to their visits. Portal email notifications will also alert patients to any new activity on their portal, such as test results and new appointments. In order to initially enroll in the [facility] Patient Portal, you will need to enter some required information including the following: * your [facility] Medical Record number * your personal home email address * name * date of Please note: In order to enroll in the [facility] Patient Portal, we need to have your email address on file in your electronic medical record. ?The email address needs to be specific for one person (yourself) in order for your Portal enrollment to be successful. ?You can update your email address in person with our Registration staff when you are registering for a hospital visit. ?Otherwise, you will need to come to the Health Information Management (Medical Records) Department at [facility]. ?We are open from Monday ? Monday from 7:30 a.m. ? 4:30 p.m. ?You will be required to present a photo id. Once you have successfully enrolled in the Patient Portal, you will receive a one-time user id and password for the Portal, sent to your email address. ?This will allow you to log into the Patient Portal within 99 hrs and reset your own logon id and password, and define personal security questions. ?Once your permanent login and password have been set, you can log into the [facility] Patient Portal at any time via the blue button above or from the Portal Logon button on any page of the [facility] website. [facility] encourage all of our patients to enroll in Patient Portal as it presents a valuable opportunity for patients and their families to actively participate in their care and stay healthy Welcome to [facility]. ?We look forward to working with you. Coding Level of Care Code New Pt Level 4 (14786) Diagnoses Restless leg syndrome G25.81 Mixed hyperlipidemia E78.2 Hyperlipidemia type: mixed hyperlipidemia ASH (generalized anxiety disorder) F41.1 Severe episode of recurrent major depressive disorder, without psychotic features F33.2 Major depression episode severity: severe Psychotic features: without psychotic features Screening for prostate cancer Z12.5 Additional Codes ASH-7 Assessment Billing - ASH-7 Assessment Tool: ASH-7 Assessment 82474 ([id number])
[2024-05-15 10:03] VITALS: BP 140/78; PULSE 102; RESP 12; TEMP 36.8; O2SAT 97; BMI 26.1
[2024-05-15 10:06] VITALS: BP 136/68
== END 2024-05-15 10:24 | disposition home or self-care (01) ==
PROVIDERS: PCP Nurse Practitioner Family; Visit Provider Nurse Practitioner Family
DX: G25.81 Restless legs syndrome (principal); F33.2 Major depressive disorder, recurrent severe without psychotic features; E78.2 Mixed hyperlipidemia; F41.1 Generalized anxiety disorder; Z12.5 Encounter for screening for malignant neoplasm of prostate
CPT/HCPCS: 99204

== ENCOUNTER 2024-05-15 10:32 | Outpatient (REF) | payer OTHER, SELFPAY ==
[2024-05-15 14:15] LABS: Alanine Aminotransferase 38 U/L (0-40); Albumin Level 4.3 g/dL (3.5-5.0); Alkaline Phosphatase 94 U/L (39-117); Anion Gap 10 (12-20); Aspartate Amino Transferase 24 U/L (5-37); Bilirubin Total 0.7 mg/dL (0.0-1.0); Blood Urea Nitrogen 14 mg/dL (9-16); Calcium 9.8 mg/dL (8.4-10.2); Carbon Dioxide 30 mmol/L (22-29); Chloride 104 mmol/L (96-108); Estimated Glomerular Filt Rate > 60; Glucose Random 126 mg/dL (60-115); Potassium 4.1 mmol/L (3.3-5.1); Sodium 140 mmol/L (135-145); Total Protein 7.2 g/dL (6.5-8.0)
[2024-05-23 08:26] LABS: LDL Cholesterol Direct 124; PSA, Ultra Sensitive 0.53
== END 2024-05-15 10:33 | disposition home or self-care (01) ==
LOC: HO.WFDLDS 10:32
PROVIDERS: Visit Provider Nurse Practitioner Family
DX: E78.5 Hyperlipidemia, unspecified (principal); G25.81 Restless legs syndrome; Z12.5 Encounter for screening for malignant neoplasm of prostate
CPT/HCPCS: 36415; 80053; 83721; 84153

== ENCOUNTER 2024-11-25 13:43 | Outpatient (REF) | payer OTHER, SELFPAY ==
--- NOTE | ~2024-11-25 | XR_ITS ---
CLINICAL HISTORY: M25.512 - Pain in left shoulder Exam: AP, Grashey, and scapular Y-views of the left shoulder. Comparison: None. Findings: No acute fracture, dislocation, or separation. Remote fracture deformity of the mid diaphysis of the left clavicle. Mild downsloping of the lateral acromion. Glenohumeral joint and AC joint are well maintained. Impression: 1. No acute findings. 2. Remote fracture of the left clavicle. This document has been electronically signed by: Alfredo Jones MD on 11/27/2024 08:07:56
--- NOTE | ~2024-11-25 | XR_ITS ---
CLINICAL HISTORY: M54.12 - Radiculopathy, cervical region Exam: AP, lateral, and open-mouth odontoid views of the cervical spine. Comparison: MRI September 14, 2020. Findings: Bony alignment of the cervical vertebral bodies is anatomic. No fracture prevertebral soft tissue swelling is identified. Moderate degenerative disc disease is seen at C5-6 and C6-7 with anterior and posterior osteophytic ridging and disc space narrowing. The remainder of the disc levels are unremarkable. Impression: Degenerative change at C5-6 and C6-7 as above. This document has been electronically signed by: Alfredo Jones MD on 11/27/2024 08:06:11
--- NOTE | ~2024-11-25 | XR_ITS ---
CLINICAL HISTORY: M89.8X1 - Other specified disorders of bone, shoulder Exam: AP and scapular Y-views of the left scapula. Comparison: Left shoulder radiographs from same day. Findings: No fracture of the scapula is identified. Remote fracture of the left clavicle is evident. No periosteal reaction. Impression: Unremarkable radiographs of the left scapula. This document has been electronically signed by: Alfredo Jones MD on 11/27/2024 08:07:45
== END 2024-11-25 13:44 | disposition home or self-care (01) ==
LOC: HO.XRAY 13:43
PROVIDERS: PCP Nurse Practitioner Family; Visit Provider Family Medicine
DX: Z13.1 Encounter for screening for diabetes mellitus (principal); M25.512 Pain in left shoulder; M89.8X1 Other specified disorders of bone, shoulder; M54.50 Low back pain, unspecified
CPT/HCPCS: 72040; 73010; 73030; 83036; 99212

== ENCOUNTER 2024-11-25 13:43 | Outpatient (AMB) | payer OTHER, SELFPAY ==
--- NOTE | 2024-11-25 13:55 | A.OFFPC_ITS ---
Vital Signs 11/25/24 13:57 11/25/24 14:56 Height 5 ft 10 in Weight 178 lb 4 oz BMI 25.6 BP 143/91 H 136/80 Blood Pressure Location Rt brachial Rt brachial Position Sitting Sitting Respiration 14 Pulse 63 Pulse Source Pulse Oximeter Temp 96.4 F L Temp Source Skin Pulse Oximetry (%) 97 Oxygen Delivery Method Room Air Intake Visit Reasons: Med review Intake Note: follow up Rn Womens Health Required: No Allergies No Known Allergies Allergy (Verified 11/25/24 13:55) Tobacco use date assessed: 05/15/24 Dental Screening Dental Screen Date: 05/15/24 HPI Med review HPI Details patient returns to follow up COUNT INCLUDES [facility] Medical History Family history of colon cancer Herniated disc Degenerative disc disease Restless leg syndrome History of anxiety Elevated cholesterol Internal and external thrombosed hemorrhoids Surgical History H/O colonoscopy History of appendectomy Family History Father HTN (hypertension) Mother No problems noted. Brother Colon cancer Other FH: mental illness Social History Household Members: None Housing: House Patient Tobacco Use Status: Never used Tobacco Second Hand Smoke Exposure: No service: No Current occupational status: unemployed Cognitive needs: No Hearing needs: No Vision needs: No Questionnaire PHQ-9 Over the last 2 weeks, how often have you been bothered by any of the following problems? 77252 - PHQ-9 Billing: Patient declined-do not bill Source: Developed by Drs. Otis Pittman, Jerica Chavez, Asad See and colleagues, with an educational elisha from [employer] Thrive Questionnaire Date Thrive assessed: 11/18/24 Do you have trouble paying for medicines?: I choose not to answer this question Do you have trouble getting transportation to medical appointments?: No Do you have trouble paying your heating and electricity bill?: I choose not to answer this question Do you have trouble taking care of your child, family member or friend?: I choose not to answer this question Do you have trouble with day-to-day activities such as bathing, preparing meals, shopping, managing finances, etc.?: I choose not to answer this question Are you currently unemployed and looking for a job?: No Are you interested in more education?: No Please select the resources that you would like help with: None Currently or been in a relationship where the following occur: No concerns reported THRIVE Score: 0 ASH-7 AMB Questionnaire ASH-7 Date ASH - 7 assessed: 05/15/24 Feeling nervous, anxious, or on edge: 3 = Nearly every day Not being able to stop or control worryin = Nearly every day Worrying too much about different things: 3 = Nearly every day Trouble relaxin = Nearly every day Being so restless that it is hard to sit still: 3 = Nearly every day Becoming easily annoyed or irritable: 3 = Nearly every day Feeling afraid as if something awful might happen: 3 = Nearly every day Total ASH-7 score (0-4 normal; 5-9 mild; 10-14 moderate; 15-21 severe): 21 Source: Developed by Drs. Otis Pittman, Jerica Chavez, Asad See and colleagues, with an educational elisha from [employer] Physical exam (Primary Care) Vital Signs: Last Vital Signs Temp 96.4 F L 11/25/24 13:57 Pulse 63 11/25/24 13:57 Resp 14 11/25/24 13:57 BP 136/80 11/25/24 14:56 Pulse Ox 97 11/25/24 13:57 Oxygen Delivery Method Room Air 11/25/24 13:57 BMI result Body Mass Index 25.6 Tobacco/Smoking Status: Tobacco use Status Tobacco use date assessed 05/15/24 11/25/24 13:57 Patient Tobacco Use Status Never used Tobacco 11/25/24 13:57 Thrive Assessment: Date of Thrive Assessment Date Thrive assessed 11/18/24 11/25/24 13:57 Currently or been in a relationship where the following occur: No concerns r eported Results AMB Hemoglobin A1c AMB Hemoglobin A1c 5.7 % Last Edit by Tino Bowers CMA on 11/25/24 15:29 Results Reviewed Results Reviewed: Laboratory Last Values Hgb A1c (Clinic) 5.7 % (4.0-6.0) 11/25/24 15:27 Coding Level of Care Code Est Pt Level 4 (27265) Assessment & Plan Assessment & Plan Plan Likely?cervical?radicular?pain?left?shoulder?and?arm?though?patient?does?not?hav e?any?current?neck?pain.??He?has?had?surgery?on?his?neck?disc?issues.??He ?has?not?had?fusion. Left?shoulder?left?scapula?pain?and?tingling?occasional?numbness.??No?weakness. He?a?cervical?MRI?in?past.??He?will?get?us?the?report.??Multiple?specialists?inc luding?pain?management?and?physiatry.??And?Ortho. Also?lumbar?pain?after?a?fall?years?ago. Bilateral?knee?pain?which?appears?to?be?patellofemoral?syndrome Encouraged?NSAIDs-Aleve?at. Gave?him?exercises?for?his?knees Will?refer?him?to?physiatry?at?[facility] (does?not?want?spine?sport) Elevated?fasting?blood?sugar?- pre?diabetes - we?can?monitor Orders: Orders XR cervical spine 2V 11/25/24 M54.12 - Radiculopathy, cervical region XR shoulder LT min 2V 11/25/24 M25.512 - Pain in left shoulder, M89.8X1 - Other specified disorders of bone, shoulder XR scapula LT 11/25/24 M89.8X1 - Other specified disorders of bone, shoulder AMB Hemoglobin A1c 11/25/24 Z13.9 - Encounter for screening, unspecified
[2024-11-25 13:57] VITALS: BP 143/91; PULSE 63; RESP 14; TEMP 35.8; O2SAT 97; BMI 25.6
[2024-11-25 14:56] VITALS: BP 136/80
== END 2024-11-25 14:55 | disposition home or self-care (01) ==
PROVIDERS: PCP Nurse Practitioner Family; Visit Provider Family Medicine
DX: Z13.9 Encounter for screening, unspecified (principal)

== ENCOUNTER → 2024-11-25 15:36 | Outpatient (BNV) | payer OTHER, SELFPAY | PROVIDERS: PCP Nurse Practitioner Family; Visit Provider Radiology Diagnostic Radiology | DX: M89.8X1 Other specified disorders of bone, shoulder (principal); M25.512 Pain in left shoulder; M54.12 Radiculopathy, cervical region | CPT/HCPCS: 72040; 73010; 73030 ==

== ENCOUNTER 2025-01-01 12:25 | Outpatient (AMB) | payer OTHER, SELFPAY ==
--- NOTE | 2025-01-01 12:29 | MHC.PC.OV ---
Vital Signs 01/01/25 12:38 Height 5 ft 10 in Weight 174 lb 4 oz BMI 25.0 BP 138/78 Blood Pressure Location Rt brachial Position Sitting Respiration 13 Pulse 86 Pulse Source Pulse Oximeter Temp 98.1 F Temp Source Oral Pulse Oximetry (%) 96 Oxygen Delivery Method Room Air Intake Visit Reasons: f/u w/ PCP for L arm/shoulder pain & Low back pain Intake Note: Follow up Customer Care Professional Required: No Allergies No Known Allergies Allergy (Verified 01/01/25 12:30) Medication List - Last Reconciled 01/01/25 by Ysabel Shelley, [employer]- alprazolam 0.5 mg PO TID PRN buspirone 5 mg PO TID quetiapine ER 200 mg PO BEDTIME ropinirole 2 mg PO BEDTIME PRN simvastatin 20 mg PO BEDTIME Tobacco use date assessed: 05/15/24 Dental Screening Dental Screen Date: 05/15/24 HPI HPI Comments History of Present Illness Details The patient is a 54-year-old male presenting with pain in his bilateral knees and shoulders, seeking follow-up for imaging results. He reports a history of bilateral clavicle fractures, with persistent discomfort in the left clavicle region impacting sleep. He has chronic neck pain due to degenerative disc disease at C5 and C6, previously managed with surgery in [place] approximately 10 years ago for a pinched nerve. This surgery involved bone removal to alleviate nerve compression. The patient also notes a similar pain pattern in his shoulder blade area, raising concerns about further issues with his cervical spine. Attempts to manage his musculoskeletal symptoms include physical therapy, stretching, and exercises, which have alleviated some pain but additional intervention is desired. The patient has experienced a period of poor diet leading to weight gain and elevated blood sugar levels, but he has since made dietary changes, resulting in improved blood glucose readings. He mentioned that emotional stress contributed to temporary hypertension, though his current blood pressure readings have normalized. He also need refills on statin and ropinorole. I sent these today for him Social History - Reports a period of consuming unhealthy foods such as donuts, ice cream, and chocolate, contributing to weight gain. - Engages in physical exercises including stretching, push-ups, and shoulder rotations to manage pain. - Expresses concerns about commuting to distant medical centers for care. PCP visit 11/25/2024 reviewed: Likely?cervical?radicular?pain?left?shoulder?and?arm?though?patient?does?not?have?any?current?neck?pain.??He?has?had?surgery?on?his?neck?disc?issues.??He?has?not?had?fusion. Left?shoulder?left?scapula?pain?and?tingling?occasional?numbness.??No?weakness. He?a?cervical?MRI?in?past.??He?will?get?us?the?report.??Multiple?specialists?including?pain?management?and?physiatry.??And?Ortho. Also?lumbar?pain?after?a?fall?years?ago. Bilateral?knee?pain?which?appears?to?be?patellofemoral?syndrome Encouraged?NSAIDs-Aleve?at. Gave?him?exercises?for?his?knees Will?refer?him?to?physiatry[place]at[place] [place]?not?want?spine?sport) Results reviewed: XR C spine, scap and shoulder 11/27/24 Bony alignment of the cervical vertebral bodies is anatomic. No fracture prevertebral soft tissue swelling is identified. Moderate degenerative disc disease is seen at C5-6 and C6-7 with anterior and posterior osteophytic ridging and disc space narrowing. The remainder of the disc levels are unremarkable. Impression: Degenerative change at C5-6 and C6-7 as above. No fracture of the scapula is identified. Remote fracture of the left clavicle is evident. No periosteal reaction. Impression: Unremarkable radiographs of the left scapula. No acute fracture, dislocation, or separation. Remote fracture deformity of the mid diaphysis of the left clavicle. Mild downsloping of the lateral acromion. Glenohumeral joint and AC joint are well maintained. Impression: 1. No acute findings. 2. Remote fracture of the left clavicle. Exam awake alert very strong smell of marijuana talkative, difficult to redirect Discussion Notes During the consultation, we reviewed the patient's imaging findings, which revealed moderate arthritis at C5, C6, and C7, without any acute fractures or dislocations. The chronic nature of the arthritis aligns with the patient's ongoing neck and shoulder pain. We discussed referral options for interventional pain management and surgical consultation, taking into consideration the patient's insurance and preference for a surgeon group. After lengthy discussion, his primary care had recommended a referral to [facility]. However upon review the ordered does not like it was placed. With that being said the patient states that he received a call and people were nasty to him at that office therefore he hung up on them and did not go through with the appointment. I do not see any of this information in the chart to reflect this. I did let the patient that. He has been several times asking about referral to Dr. Colon me a previous neurosurgeon who no longer lives in his area. He also want to see Dr. Anand although he was never performed any surgery. He does not want to go back to [place] as he does not like the commute. He was reservations about going to any local doctors. He named several doctors by name and gain a litany of reasons why he could not see them. I advised the patient to research providers within his insurance network who specialize in neurosurgery or pain management and contact our office with his choice for a referral. The patient was encouraged to continue with lifestyle modifications that have positively impacted his blood pressure and glucose levels. Anticipatory guidance was provided regarding follow-up with Dr. Sanchez for comprehensive care planning. I asked him specifically to send us a portal message with the name of the provider that he would like to see. He reports that he can not use the portal. I am unsure why he is unable to use the portal. The information was provided to him. This was a very challenging visit as the patient was very hard to redirect. Plan - Bilateral knee and shoulder pain: Encourage continuation of physical therapy and exercise regimen. Discussed the potential benefits of an interventional pain management approach and the possibility of consulting with a neurosurgeon for further evaluation. - elevated bp w/o dx of HTN: Maintain lifestyle changes. Monitor blood pressure regularly. - Prediabetes: Continue dietary improvements and monitor blood glucose levels. Positive progression noted with recent lifestyle changes. - Degenerative disc disease at C5, C6: Recommend consultation with a neurosurgeon for evaluation of potential further treatment options if symptomatic worsening occurs. - History of clavicle fractures: No acute management indicated. Continue supportive care as needed. - Cervical spine surgery history: Follow up with neurosurgery as needed based on symptomatology and evaluation outcomes. Patient was informed and verbally consented to the use of an ambient scribe for clinic note documentation during this visit. Total time spent caring for the patient today was 45 minutes. This includes time spent before the visit reviewing the chart, time spent during the visit, and time spent after the visit on documentation, reviewing laboratory results, diagnostic imaging, medications, performing a medically necessary evaluation, counseling on diagnoses, care coordination, ordering appropriate tests, ordering appropriate medications, review of tests performed by other providers, reporting test results with the patient, communication with other healthcare providers. [facility] Medical History Family history of colon cancer Herniated disc Degenerative disc disease Restless leg syndrome History of anxiety Elevated cholesterol Internal and external thrombosed hemorrhoids Surgical History H/O colonoscopy History of appendectomy Family History Father HTN (hypertension) Mother No problems noted. Brother Colon cancer Other FH: mental illness Social History Household Members: None Housing: House Patient Tobacco Use Status: Never used Tobacco Second Hand Smoke Exposure: No service: No Current occupational status: unemployed Cognitive needs: No Hearing needs: No Vision needs: No Questionnaire PHQ-9 Over the last 2 weeks, how often have you been bothered by any of the following problems? 1. Little interest or pleasure in doing things: not at all 2. Feeling down, depressed, or hopeless: not at all 3. Trouble falling or staying asleep, or sleeping too much: not at all 4. Feeling tired or having little energy: not at all 5. Poor appetite or overeating: not at all 6. Feeling bad about yourself - or that you are a failure or have let yourself or your family down: not at all 7. Trouble concentrating on things, such as reading the newspaper or watching television: not at all 8. Moving or speaking so slowly that other people could have noticed. Or the opposite - being so fidgety or restless that you have been moving around a lot more than usual: not at all 9. Thoughts that you would be better off or of hurting yourself in some way: not at all Total score: 0 Depression Screening Interpretation: Negative Depression Screening Done: Yes 98289 - PHQ-9 Billing: Patient declined-do not bill Source: Developed by Drs. Otis Pittman, Jerica Chavez, Asad See and colleagues, with an educational elisha from [employer]. Thrive Questionnaire Date Thrive assessed: 01/01/25 I am a: Patient What is your living situation today?: I choose not to answer this question Within the past 12 months, did the food you bought not last and you didn't have the money to get more?: I choose not to answer this question Within the past 12 months, did you worry whether your food would run out before you got money to buy more?: I choose not to answer this question Do you have trouble paying for medicines?: I choose not to answer this question Do you have trouble getting transportation to medical appointments?: I choose not to answer this question Do you have trouble paying your heating and electricity bill?: I choose not to answer this question Do you have trouble taking care of your child, family member or friend?: I choose not to answer this question Do you have trouble with day-to-day activities such as bathing, preparing meals, shopping, managing finances, etc.?: I choose not to answer this question Are you currently unemployed and looking for a job?: I choose not to answer this question Are you interested in more education?: I choose not to answer this question Please select the resources that you would like help with: None Currently or been in a relationship where the following occur: I choose not to answer THRIVE Score: 0 AUDIT C Alcohol Use Questionnaire (AUDIT-C) 1. How often do you have a drink containing alcohol?: Never Total Score: 0 Score Reviewed/Action Taken: Yes ASH-7 AMB Questionnaire SAH-7 Date ASH - 7 assessed: 01/01/25 Feeling nervous, anxious, or on edge: 3 = Nearly every day Not being able to stop or control worryin = Nearly every day Worrying too much about different things: 3 = Nearly every day Trouble relaxin = Nearly every day Being so restless that it is hard to sit still: 3 = Nearly every day Becoming easily annoyed or irritable: 3 = Nearly every day Feeling afraid as if something awful might happen: 3 = Nearly every day Total ASH-7 score (0-4 normal; 5-9 mild; 10-14 moderate; 15-21 severe): 21 Source: Developed by Drs. Otis Pittman, Jerica Chavez, Asad See and colleagues, with an educational elisha from [employer]. ASH-7 Assessment Billing ASH-7 Assessment Tool: AHS-7 Assessment 11749 Physical exam (Primary Care) Vital Signs: Last Vital Signs Temp 98.1 F 01/01/25 12:38 Pulse 86 01/01/25 12:38 Resp 13 01/01/25 12:38 BP 138/78 01/01/25 12:38 Pulse Ox 96 01/01/25 12:38 Oxygen Delivery Method Room Air 01/01/25 12:38 BMI result Body Mass Index 25.0 Tobacco/Smoking Status: Tobacco use Status Tobacco use date assessed 05/15/24 01/01/25 12:32 Patient Tobacco Use Status Never used Tobacco 01/01/25 12:32 PHQ-9: PHQ-9 Score PHQ-9: Total score 0 01/01/25 15:46 Depression Screening Interpretation: Negative Thrive Assessment: Date of Thrive Assessment Date Thrive assessed 01/01/25 01/01/25 12:32 Currently or been in a relationship where the following occur: I choose not to answer Coding Level of Care Code Est Pt Level 5 (87660) Complex EM visit Add On G2211 Diagnoses Osteoarthritis of spine with radiculopathy, cervical region M47.22 Spinal osteoarthritis complication: with radiculopathy History of fracture of clavicle Z87.81 History of cervical spinal surgery Z98.890 Chronic left shoulder pain M25.512; G89.29 Chronicity: chronic Pain of left scapula M89.8X1 Additional Codes ASH-7 Assessment Billing - ASH-7 Assessment Tool: ASH-7 Assessment 80191 ([id number]) Assessment & Plan Assessment & Plan (1) DJD (degenerative joint disease) of cervical spine: Code(s): M47.812 - Spondylosis without myelopathy or radiculopathy, cervical region Category: Medical Qualifiers: Spinal osteoarthritis complication: with radiculopathy Qualified Code(s): M47.22 - Other spondylosis with radiculopathy, cervical region (2) History of fracture of clavicle: Comment: L Code(s): Z87.81 - Personal history of (healed) traumatic fracture Category: Medical (3) History of cervical spinal surgery: Code(s): Z98.890 - Other specified postprocedural states Category: Surgical (4) Left shoulder pain: Code(s): M25.512 - Pain in left shoulder Category: Medical Qualifiers: Chronicity: chronic Qualified Code(s): M25.512 - Pain in left shoulder; G89.29 - Other chronic pain (5) Pain of left scapula: Code(s): M89.8X1 - Other specified disorders of bone, shoulder Category: Medical Plan . Medications: Refilled ropinirole 2 mg PO BEDTIME PRN 30 tabs 1RF Restless Leg(S) simvastatin 20 mg PO BEDTIME 90 tabs 1RF Patient Instructions: Patient Instructions - Continue with current dietary and exercise regimen to maintain blood glucose levels and blood pressure. - Follow up with insurance to identify and select a neurosurgeon or design painter within network. - Contact our office with the selected provider's details for referral processing. - Monitor for any changes or escalation in pain symptoms and seek medical attention if necessary.
[2025-01-01 12:38] VITALS: BP 138/78; PULSE 86; RESP 13; TEMP 36.7; O2SAT 96; BMI 25.0
== END 2025-01-01 13:23 | disposition home or self-care (01) ==
PROVIDERS: PCP Nurse Practitioner Family; Visit Provider Nurse Practitioner Family
DX: M47.22 Other spondylosis with radiculopathy, cervical region (principal); Z87.81 Personal history of (healed) traumatic fracture; Z98.890 Other specified postprocedural states; M25.512 Pain in left shoulder; G89.29 Other chronic pain; M89.8X1 Other specified disorders of bone, shoulder

== ENCOUNTER → 2025-01-01 12:25 | Outpatient (BNVA) | payer OTHER, SELFPAY | PROVIDERS: PCP Nurse Practitioner Family; Visit Provider Nurse Practitioner Family | DX: M47.22 Other spondylosis with radiculopathy, cervical region (principal); M25.512 Pain in left shoulder; G89.29 Other chronic pain; M89.8X1 Other specified disorders of bone, shoulder; Z87.81 Personal history of (healed) traumatic fracture; Z98.890 Other specified postprocedural states | CPT/HCPCS: 96127; 99212 ==

== ENCOUNTER 2025-03-03 10:19 | Outpatient (AMB) | payer OTHER, SELFPAY ==
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
[2025-03-03 11:01] VITALS: BP 124/70; PULSE 77; RESP 14; TEMP 36.9; O2SAT 98; BMI 24.1
== END 2025-03-03 11:59 | disposition home or self-care (01) ==
PROVIDERS: PCP Family Medicine; Visit Provider Family Medicine
DX: Z91.81 History of falling (principal); M47.22 Other spondylosis with radiculopathy, cervical region; M25.512 Pain in left shoulder; G89.29 Other chronic pain; R73.03 Prediabetes

== ENCOUNTER 2025-03-03 10:19 | Outpatient (REF) | payer OTHER, SELFPAY ==
--- NOTE | ~2025-03-03 | XR_ITS ---
EXAMINATION: XR PELVIS CLINICAL INFORMATION: M79.18 - Myalgia, other site COMPARISON: None available. TECHNIQUE: AP view of the pelvis. FINDINGS: Bony pelvis is intact. No lytic or blastic lesions. No acute cortical disruption or gross malalignment in either hip. No metallic or radiopaque foreign body. XR/XR pelvis 1-2V IMPRESSION: No acute fracture. Negative x-ray. Electronically signed by: Rashi Smith MD 03/04/2025 10:07 AM EDT
--- NOTE | ~2025-03-03 | XR_ITS ---
CLINICAL HISTORY: Z91.81 - History of falling Three views of the cervical spine. COMPARISON: XR cervical spine dated 11/25/24 at 15:56 EST FINDINGS: Normal vertebral body alignment. No evidence of acute vertebral body injury. Normal C1-C2 articulation. Loss of disc space height with small marginal osteophytes at C5-6 and C6-7. Uncovertebral joint hypertrophy in the midcervical spine. Visualized paravertebral soft tissues and lung apices are unremarkable. IMPRESSION: 1. No radiographic evidence of acute injury to the cervical spine. 2. Moderate mid to lower cervical spondylosis, similar to prior imaging. This document has been electronically signed by: Kevin Garcia MD on 03/04/2025 17:32:46
== END 2025-03-03 10:20 | disposition home or self-care (01) ==
LOC: HO.XRAY 10:19
PROVIDERS: PCP Nurse Practitioner Family; Visit Provider Family Medicine
DX: M47.22 Other spondylosis with radiculopathy, cervical region (principal); M25.512 Pain in left shoulder; G89.29 Other chronic pain; R73.03 Prediabetes; M54.2 Cervicalgia; M53.3 Sacrococcygeal disorders, not elsewhere classified; M79.18 Myalgia, other site; Z91.81 History of falling
CPT/HCPCS: 72040; 72170; 83036; 96127; 99212

== ENCOUNTER → 2025-03-03 12:27 | Outpatient (BNV) | payer OTHER, SELFPAY | PROVIDERS: PCP Nurse Practitioner Family; Visit Provider Radiology Diagnostic Radiology | DX: M47.812 Spondylosis without myelopathy or radiculopathy, cervical region (principal); M79.18 Myalgia, other site | CPT/HCPCS: 72040; 72170 ==

== ENCOUNTER 2025-03-20 12:24 | Outpatient (AMB) | payer OTHER, SELFPAY ==
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
== END 2025-03-20 17:05 | disposition home or self-care (01) ==
LOC: HO.HMCFM 12:24
PROVIDERS: PCP Family Medicine; Visit Provider Family Medicine
DX: R19.7 Diarrhea, unspecified (principal); Z91.81 History of falling

== ENCOUNTER → 2025-03-20 12:24 | Outpatient (BNVA) | payer OTHER, SELFPAY | PROVIDERS: PCP Family Medicine; Visit Provider Family Medicine ==

== ENCOUNTER 2025-06-23 10:13 | Outpatient (AMB) | payer OTHER, SELFPAY ==
--- NOTE | 2025-06-23 10:31 | A.OFFPC_ITS ---
Vital Signs 06/23/25 10:44 Height 5 ft 10 in Weight 169 lb 8 oz BMI 24.3 BP 120/78 Blood Pressure Location Rt brachial Position Sitting Respiration 14 Pulse 70 Pulse Source Pulse Oximeter Temp 98.0 F Temp Source Oral Pulse Oximetry (%) 96 Oxygen Delivery Method Room Air Intake Visit Reasons: Pre?diabetes?and?chronic?conditions Intake Note: patient is schedule to follow up for chronic conditions and pre-dm Small Business Representative Required: No Allergies No Known Allergies Allergy (Verified 06/23/25 10:43) Medication List - Last Reconciled 06/23/25 by Jose Sanchez MD alprazolam 0.5 mg PO TID PRN buspirone 5 mg PO TID quetiapine ER 200 mg PO BEDTIME ropinirole 2 mg PO BEDTIME PRN simvastatin 20 mg PO BEDTIME Tobacco use date assessed: 05/15/24 Dental Screening Dental Screen Date: 05/15/24 HPI Pre?diabetes?and?chronic?conditions HPI Details 54 y/o male presents to f/u pre-diabetes . A1c today 5.5%. Pt reports back pain - had worsened pain after picking something up. Had been using naproxen for relief. Also reports L upper arm pain. Denies numbness/tingling or weakness. [facility] Medical History Family history of colon cancer Herniated disc Degenerative disc disease Restless leg syndrome History of anxiety Elevated cholesterol Internal and external thrombosed hemorrhoids Surgical History H/O colonoscopy History of appendectomy Family History Father HTN (hypertension) Mother No problems noted. Brother Colon cancer Other FH: mental illness Social History Household Members: None Housing: House Patient Tobacco Use Status: Never used Tobacco Second Hand Smoke Exposure: No service: No Current occupational status: unemployed Cognitive needs: No Hearing needs: No Vision needs: No Questionnaire Thrive Questionnaire Date Thrive assessed: 01/01/25 I am a: Patient What is your living situation today?: I choose not to answer this question Within the past 12 months, did the food you bought not last and you didn't have the money to get more?: I choose not to answer this question Within the past 12 months, did you worry whether your food would run out before you got money to buy more?: I choose not to answer this question Do you have trouble paying for medicines?: I choose not to answer this question Do you have trouble getting transportation to medical appointments?: I choose not to answer this question Do you have trouble paying your heating and electricity bill?: I choose not to answer this question Do you have trouble taking care of your child, family member or friend?: I choose not to answer this question Do you have trouble with day-to-day activities such as bathing, preparing meals, shopping, managing finances, etc.?: I choose not to answer this question Are you currently unemployed and looking for a job?: I choose not to answer this question Are you interested in more education?: I choose not to answer this question Please select the resources that you would like help with: None Currently or been in a relationship where the following occur: I choose not to answer THRIVE Score: 0 ASH-7 AMB Questionnaire ASH-7 Date ASH - 7 assessed: 03/03/25 Source: Developed by Drs. Otis Pittman, Jerica Chavez, Asad See and colleagues, with an educational elisha from [employer]. Review of Systems Const Denies chills, Denies fatigue, Denies fever(s), Denies headache(s) and Denies weakness ENT Denies dizziness and Denies headache(s) Card Denies dyspnea Resp Denies cough, Denies dyspnea, Denies wheezing and Denies other (shortness of breath) Musc Reports back pain, Denies numbness and Denies tingling Neuro Denies dizziness, Denies headache(s), Denies numbness, Denies tingling and Denies weakness Psych Denies anxiety and Denies depression Endo Denies fatigue Aller/Immun Denies wheezing Physical exam (Primary Care) Vital Signs: Last Vital Signs Temp 98.0 F 06/23/25 10:44 Pulse 70 06/23/25 10:44 Resp 14 06/23/25 10:44 BP 120/78 06/23/25 10:44 Pulse Ox 96 07/28/25 10:44 Oxygen Delivery Method Room Air 06/23/25 10:44 BMI result Body Mass Index 24.3 Tobacco/Smoking Status: Tobacco use Status Tobacco use date assessed 05/15/24 06/23/25 10:31 Patient Tobacco Use Status Never used Tobacco 06/23/25 10:31 Thrive Assessment: Date of Thrive Assessment Date Thrive assessed 01/01/25 06/23/25 10:31 Currently or been in a relationship where the following occur: I choose not to answer Const General: well developed; No acute distress Nutritional Appearance: well nourished Orientation/consciousness: patient oriented x3 HENMT Head: Yes normocephalic and Yes atraumatic Eyes General: appearance normal, both eyes and all related structures Pupils: Equal, round and reactive pupils present EOM: EOMs intact bilaterally Resp Effort & Inspection: normal respiratory effort Neuro General: patient oriented x3 and gait normal Cranial nerves: Yes Equal, round and reactive pupils present Psych Affect: normal affect Results AMB Hemoglobin A1c AMB Hemoglobin A1c 5.5 % Last Edit by KODI Hook on 06/23/25 10:58 Results Reviewed Results Reviewed: Laboratory Last Values Hgb A1c (Clinic) 5.5 % (4.0-6.0) 06/23/25 10:57 Coding Level of Care Code Est Pt Level 4 (44243) Diagnoses Pre-diabetes R73.03 Low back pain M54.50 Left arm pain M79.602 Chronic left shoulder pain M25.512; G89.29 Chronicity: chronic Assessment & Plan Assessment & Plan (1) Pre-diabetes: Code(s): R73.03 - Prediabetes Category: Medical Plan: A1c stable at 5.5%. Upper range of normal and has been as high as 5.7%. Keep working at diet lower in sugars and starches Control weight Exercise as tolerated Will monitor periodically (2) Low back pain: Code(s): M54.50 - Low back pain, unspecified Category: Medical (3) Left arm pain: Code(s): M79.602 - Pain in left arm Category: Medical (4) Left shoulder pain: Code(s): M25.512 - Pain in left shoulder Category: Medical Qualifiers: Chronicity: chronic Qualified Code(s): M25.512 - Pain in left shoulder; G89.29 - Other chronic pain Plan Ongoing low back pain. Also left shoulder and arm pain. No numbness or tingling of arm. No weakness. Patient has tried Aleve and has had imaging and visit to pain management Will give him a script for meloxicam and also cyclobenzaprine. Recommend ice/heat Referred to physiatry Orders: Orders AMB Hemoglobin A1c Today Z13.9 - Encounter for screening, unspecified Referrals Physiatry Referral G89.29 - Other chronic pain, M25.512 - Pain in left shoul gallito, M54.50 - Low back pain, unspecified, M79.602 - Pain in left arm Medications: New meloxicam 15 mg PO DAILY 30 tabs 2RF 30 days cyclobenzaprine 10 mg PO BID PRN 20 tabs 0RF muscle spasm 10 days
[2025-06-23 10:44] VITALS: BP 120/78; PULSE 70; RESP 14; TEMP 36.7; O2SAT 96; BMI 24.3
== END 2025-06-23 11:30 | disposition home or self-care (01) ==
LOC: HO.HMCFM 10:14
PROVIDERS: PCP Family Medicine; Visit Provider Family Medicine
DX: R73.03 Prediabetes (principal); M54.50 Low back pain, unspecified; M79.602 Pain in left arm; M25.512 Pain in left shoulder; G89.29 Other chronic pain; Z13.9 Encounter for screening, unspecified

== ENCOUNTER → 2025-06-23 10:13 | Outpatient (BNVA) | payer OTHER, SELFPAY | PROVIDERS: PCP Family Medicine; Visit Provider Family Medicine | DX: M54.50 Low back pain, unspecified (principal); R73.03 Prediabetes; M25.512 Pain in left shoulder; M79.602 Pain in left arm; G89.29 Other chronic pain | CPT/HCPCS: 83036; 99212 ==